=== PATIENT | female | born 1960 | race Caucasian/White ===

== ENCOUNTER → 2016-04-17 | Outpatient (CLI) | payer OTHER ==
[~2016-04-17] MED LIST: ATOR1TAB18 PO; LEVO100T5 PO; LEVO50TA4 PO; LEVO75TA3 PO; ROBA500T PO
[2016-04-17 13:35] LABS: ALKALINE PHOSPHATASE 90 U/L (45-117); ALT (GPT) 38 U/L (10-53); ANION GAP 7 MEQ/L (5-15); AST (GOT) 36 U/L (15-37); BICARBONATE 33.3 MEQ/L (21.0-32.0); BLOOD UREA NITROGEN 14 MG/DL (7-18); CHLORIDE 99 MEQ/L (98-107); GLOMERULAR FILTRATION RATE 34 ML/MIN (>89); GLUCOSE,FASTING 91 MG/DL (74-99); HDL CHOLESTEROL 46.7 MG/DL (40.0-60.0); LDL CHOLESTEROL 306 MG/DL (0-99); POTASSIUM 4.6 MEQ/L (3.5-5.1); SODIUM (NA) 139 MEQ/L (136-145); TOTAL BILIRUBIN ADULT 0.4 MG/DL (0.2-1.0)
== END ==
LOC: CLAB 10:21
PROVIDERS: ATTEND Nurse Practitioner Family
DX: I10 Essential (primary) hypertension (principal); E66.9 Obesity, unspecified; Z72.0 Tobacco use; Z88.9 Allergy status to unspecified drugs, medicaments and biological substances
CPT/HCPCS: 36415; 80053; 80061; 84443

== ENCOUNTER → 2016-05-08 | Outpatient (CLI) | payer OTHER | LOC: CLAB 11:20 | PROVIDERS: ATTEND Nurse Practitioner Family | DX: E03.9 Hypothyroidism, unspecified (principal) | CPT/HCPCS: 36415; 84443 ==

== ENCOUNTER → 2016-06-14 | Outpatient (CLI) | payer OTHER ==
[~2016-06-14] MED LIST changes: -LEVO50TA4 PO
== END ==
LOC: CLAB 09:52
PROVIDERS: ATTEND Nurse Practitioner Family
DX: E03.9 Hypothyroidism, unspecified (principal)
CPT/HCPCS: 36415; 84443

== ENCOUNTER → 2016-07-10 | Outpatient (CLI) | payer OTHER ==
[~2016-07-10] MED LIST changes: -LEVO75TA3 PO
--- NOTE | 2016-07-10 13:51 | RADRPT ---
EXAM DATE/TIME: 07/10/2016 11:04 [facility] COMPARISON: No previous studies available for comparison. INDICATIONS : Right ankle discomfort; trouble walking for 6 months. MEDICAL HISTORY : None. SURGICAL HISTORY : None. ENCOUNTER: Initial ACUITY: 4 - 6 months PAIN SCORE: 0/10 LOCATION: Right ankle. FINDINGS: A healing oblique fracture of the distal right fibula is present at the level of the distal tibiofibu lar joint. The hindfoot is grossly intact. CONCLUSION: Healing distal fibular fracture Bayron Rivero MD on July 10, 2016 at 13:48 Board Certified Radiologist. This report was verified electronically.
== END ==
LOC: HRAD 10:47
PROVIDERS: ATTEND Family Medicine
DX: M25.374 Other instability, right foot (principal)
CPT/HCPCS: 73610

== ENCOUNTER 2016-07-30 09:08 | Emergency (ER) | payer OTHER ==
[~2016-07-30] VITALS: Ht 154.9 cm; Wt 65.0 kg
[2016-07-30 09:14] VITALS: BP 126/58; PULSE 74; RESP 20; TEMP 97.7
[2016-07-30 09:40] VITALS: O2SAT 97
--- NOTE | 2016-07-30 09:43 | PD ---
HPI Chief Complaint: Syncope/Near-Syncope Time Seen by Provider: 09:26 Travel History International Travel<30 days: No Contact w/Intl Traveler<30days: No Traveled to known affect area: No History of Present Illness HPI This patient was seated on her patio smoking a cigarette when she according to her had a syncopal episode. He says that she slumped over in her chair and he called 911. She did not fall out of the chair. There is no injury. He woke up spontaneously. No alleviating factors. At this time she feels "drained " but otherwise no specific complaints. She did not have any headache or chest pain or palpitations. Symptoms severity was moderate. Duration several minutes PFSH Past Medical History High Cholesterol: Yes Hypertension: Yes Thyroid Disease: Yes Tetanus Vaccination: Unknown Influenza Vaccination: No ?: Not Dilation and Curettage (D&C): Yes Past Surgical History Section: Yes Tonsillectomy: Yes Social History Alcohol Use: No (quit for 10 yrs) Tobacco Use: Yes (1/2 PACK PER DAY) Substance Use: No Allergies-Medications (Allergen,Severity, Reaction): Coded Allergies: No Known Allergies (Verified , 06/28/16) Reported Meds & Prescriptions Reported Meds & Active Scripts Active Atorvastatin (Atorvastatin Calcium) 80 Mg Tab 80 Mg PO HS Levothyroxine (Levothyroxine Sodium) 100 Mcg Tab 100 Mcg PO DAILY Robaxin (Methocarbamol) 500 Mg Tab 500 Mg PO TID Review of Systems General / Constitutional: No: Fever Eyes: No: Visual changes HENT: No: Headaches Cardiovascular: Positive: Syncope, No: Chest Pain or Discomfort Respiratory: No: Shortness of Breath Gastrointestinal: No: Abdominal Pain Genitourinary: No: Dysuria Musculoskeletal: No: Pain Skin: No Rash Neurologic: Positive: Weakness, Syncope, Sensory Disturbance Psychiatric: No: Depression Endocrine: No: Polydipsia Hematologic/Lymphatic: No: Easy Bruising Physical Exam Narrative GENERAL: Well-nourished, well-developed patient in no apparent distress. SKIN: Focused skin assessment reveals no rash and nodules. Skin is Warm and dry. HEAD: Atraumatic. Normocephalic. EYES: Pupils equal and round. No scleral icterus. No injection or drainage. ENT: No nasal bleeding or discharge. Mucous membranes pink and moist. NECK: Trachea midline. No JVD. CARDIOVASCULAR: Regular rate and rhythm. No murmur appreciated. RESPIRATORY: No accessory muscle use. Clear to auscultation. Breath sounds equal bilaterally. GASTROINTESTINAL: Abdomen soft, non-tender, nondistended. Hepatic and splenic margins not palpable. MUSCULOSKELETAL: No obvious deformities. No clubbing. No cyanosis. No edema. NEUROLOGICAL: Awake and alert. No obvious cranial nerve deficits. Motor exam reveals some weakness of the right leg. Weak plantar flexion and dorsiflexion on the right leg. Sensation subjectively diminished to sharp and light touch in the right leg as well. Normal speech. PSYCHIATRIC: Appropriate mood and affect; insight and judgment normal. Data Data Last Documented VS Vital Signs Date Time Temp Pulse Resp B/P Pulse Ox O2 Delivery O2 Flow Rate FiO2 07/30/16 11:03 Room Air 07/30/16 09:40 97 07/30/16 09:14 97.7 74 20 126/58 Orders Electrocardiogram (07/30/16 09:36) Prothrombin Time / Inr (Pt) (07/30/16 09:36) Act Partial Throm Time (Ptt) (07/30/16 09:36) Complete Blood Count With Diff (07/30/16 09:36) Basic Metabolic Panel (Bmp) (07/30/16 09:36) Ct Brain W/O Iv Contrast(Rout) (07/30/16 09:36) Ecg Monitoring (07/30/16 09:36) Iv Access Insert/Monitor (07/30/16 09:36) Oximetry (07/30/16 09:36) Sodium Chloride 0.9% Flush (Ns Flush) (07/30/16 09:45) Labs Laboratory Tests Test 07/30/16 09:43 White Blood Count 13.6 TH/MM3 Red Blood Count 4.56 MIL/MM3 Hemoglobin 13.0 GM/DL Hematocrit 40.3 % Mean Corpuscular Volume 88.3 FL Mean Corpuscular Hemoglobin 28.4 PG Mean Corpuscular Hemoglobin 32.2 % Concent Red Cell Distribution Width 15.8 % Platelet Count 400 TH/MM3 Mean Platelet Volume 7.4 FL Neutrophils (%) (Auto) 60.2 % Lymphocytes (%) (Auto) 29.3 % Monocytes (%) (Auto) 7.4 % Eosinophils (%) (Auto) 2.4 % Basophils (%) (Auto) 0.7 % Neutrophils # (Auto) 8.2 TH/MM3 Lymphocytes # (Auto) 4.0 TH/MM3 Monocytes # (Auto) 1.0 TH/MM3 Eosinophils # (Auto) 0.3 TH/MM3 Basophils # (Auto) 0.1 TH/MM3 CBC Comment DIFF FINAL Differential Comment Prothrombin Time 11.1 SEC Prothromb Time International 1.0 RATIO Ratio Activated Partial 26.6 SEC Thromboplast Time Sodium Level 139 MEQ/L Potassium Level 4.8 MEQ/L Chloride Level 104 MEQ/L Carbon Dioxide Level 27.0 MEQ/L Anion Gap 8 MEQ/L Blood Urea Nitrogen 12 MG/DL Creatinine 0.86 MG/DL Estimat Glomerular Filtration 68 ML/MIN Rate Random Glucose 102 MG/DL Calcium Level 9.9 MG/DL [facility] Medical Decision Making Medical Screen Exam Complete: Yes Emergency Medical Condition: Yes Medical Record Reviewed: Yes Differential Diagnosis Cardiac arrhythmia, vasovagal episode, CVA Narrative Course I have reviewed the patient's electronic medical record. Patient was here 3 weeks ago with ankle injury This patient presented with a syncopal episode. Extended cardiac monitoring reveals sinus rhythm without ectopy I reviewed her EKG which is normal IV placed CBC is normal Metabolic profile is normal Coagulation studies are normal Brain CT shows ischemic white matter change more prominent in the left lacunar area suggesting possibility of old stroke there Neurologic exam I noticed that she has numbness and weakness of the right leg. That's been going on for about 3 months so not new or acute. She is seen her doctor since that occurred and says that "her doctor is working on it". She does not of a formal diagnosis. However putting together her CT and exam and history I suspect that she did have a small stroke 3 months ago. I don't see any acute indication to hospitalize her now for this. Her doctor is aware of the situation I have observed her for 3 hours here and she remains asymptomatic with sinus rhythm and normal EKG and normal vital signs She will follow-up with her family physician. If she has recurrent syncope or any neurologic change her will bring her back likely do hospitalization at that point. Diagnosis Primary Impression: Episode of syncope Qualified Code: R55 - Syncope, unspecified syncope type Additional Impression: Weakness of left leg Additional Instructions: The patient was advised to follow up with their physician and return if they worsen. Med/Other Pt SpecificInfo: Other Disposition: DISCHARGE HOME Condition: Stable Gwyn Dickens MD July 30, 2016 09:43
[2016-07-30] MEDS ORDERED: SODIUM CHLORIDE 0.9% FLUSH 10 ML FLUSH IVF PRN (09:45)
[2016-07-30 10:19] LABS: AUTOMATED NEUTROPHIL # 8.2 TH/MM3 (1.8-7.7); BASOPHIL # 0.1 TH/MM3 (0-0.2); BASOPHIL % 0.7 % (0.0-2.0); EOSINOPHIL # 0.3 TH/MM3 (0-0.4); EOSINOPHIL % 2.4 % (0.0-4.0); HEMATOCRIT 40.3 % (35.0-46.0); HEMO FLAGS DIFF FINAL; LYMPH % 29.3 % (9.0-44.0); MEAN CELL VOLUME 88.3 FL (80.0-100.0); MEAN CORPUSCULAR HEMOGLOBIN 28.4 PG (27.0-34.0); MEAN CORPUSCULAR HGB CONC 32.2 % (32.0-36.0); MONO % 7.4 % (0.0-8.0); NEUT % 60.2 % (16.0-70.0); PLATELET COUNT 400 TH/MM3 (150-450); RED BLOOD COUNT 4.56 MIL/MM3 (4.00-5.30); RED CELL DISTRIBUTION WIDTH 15.8 % (11.6-17.2); WHITE BLOOD COUNT 13.6 TH/MM3 (4.0-11.0)
--- NOTE | 2016-07-30 10:25 | RADRPT ---
EXAM DATE/TIME: 07/30/2016 10:11 [facility] COMPARISON: No previous studies available for comparison. INDICATIONS : History of syncopal episodes. RADIATION DOSE: 39.55 CTDIvol (mGy) MEDICAL HISTORY : Hypertension. SURGICAL HISTORY : Tonsillectomy. ENCOUNTER: Initial ACUITY: 1 day PAIN SCALE: 0/10 LOCATION: TECHNIQUE: Multiple contiguous axial images were obtained of the head. Using automated exposure control and adj ustment of the mA and/or kV according to patient size, radiation dose was kept as low as reasonably a chievable to obtain optimal diagnostic quality images. FINDINGS: CEREBRUM: There is mild generalized cerebral atrophy. Ventricles are normal in size given the degree of atrophy present. There is mild to moderate periventricular white matter low attenuation. More focal asymmetr ic areas of low-attenuation are present in the left centrum semiovale and left periventricular fronta l white matter. No evidence of midline shift, mass lesion, hemorrhage or acute infarction. No extra -axial fluid collections are seen. POSTERIOR FOSSA: The cerebellum and brainstem demonstrate no acute finding. The 4th ventricle is midline. The cerebe llopontine angle is unremarkable. EXTRACRANIAL: Visualized sinuses are clear. SKULL: The calvaria is intact. No evidence of skull fracture. CONCLUSION: 1. No acute intracranial abnormality is identified. 2. There is mild to moderate periventricular white matter low attenuation characteristic of chronic m icrovascular ischemia with asymmetric areas of low density in the left centrum semiovale and left fro ntal periventricular white matter likely representing old lacunes. Bayron Martines MD on July 30, 2016 at 10:21 Board Certified Radiologist. This report was verified electronically.
[2016-07-30 10:28] LABS: APTT (PATIENT) 26.6 SEC (24.3-30.1); PROTHROMBIN TIME - PATIENT 11.1 SEC (9.8-11.6)
[2016-07-30 10:55] LABS: POTASSIUM 4.8 MEQ/L (3.5-5.1)
--- NOTE | 2016-07-30 20:10 | EKG ---
Date Performed: 07/30/2016 Time Performed: 09:17:28 PTAGE: 56 years EKG: Sinus rhythm NORMAL ECG Compared to prior tracing no significant change DOCTOR: Te Malhotra Interpretating Date/Time 07/30/2016 20:09:38
== END 2016-07-30 12:33 | disposition home or self-care (01) ==
LOC: NEPC 09:08
DX: R55 Syncope and collapse (principal); R53.1 Weakness; E78.00 Pure hypercholesterolemia, unspecified; I10 Essential (primary) hypertension; F17.210 Nicotine dependence, cigarettes, uncomplicated
CPT/HCPCS: 70450; 80048; 85025; 85610; 85730; 93005; 99285

== ENCOUNTER → 2016-08-09 | Outpatient (CLI) | payer OTHER ==
[2016-08-09 12:38] LABS: HDL CHOLESTEROL 38.7 MG/DL (40.0-60.0)
== END ==
LOC: CLAB 11:39
PROVIDERS: ATTEND Nurse Practitioner Family
DX: E78.5 Hyperlipidemia, unspecified (principal); E03.9 Hypothyroidism, unspecified
CPT/HCPCS: 36415; 80061; 84443

== ENCOUNTER → 2016-08-14 | Outpatient (CLI) | payer OTHER ==
--- NOTE | 2016-08-14 10:59 | RADRPT ---
EXAM DATE/TIME: 08/14/2016 09:49 [facility] COMPARISON: No previous studies available for comparison. INDICATIONS : Syncope. MEDICAL HISTORY : Hypercholesterolemia. Hypothyroidism. Hypertension. Pancreatitis. Hyperlipidemia. SURGICAL HISTORY : Tonsillectomy. section. D&C. Right hip surgery. ENCOUNTER: Initial ACUITY: PAIN SCORE: 0/10 LOCATION: Bilateral neck PEAK SYSTOLIC VELOCITIES (cm/sec): ICA/CCA RATIO: Right: 1.3 Left: 6.0 ICA: Right: 106.5 Left: 382.7 CCA: Right: 80.1 Left: 63.6 ECA: Right: 88.7 Left: 143.7 VERTEBRAL: Right: 34.8 antegrade Left: 69.1 antegrade Elevated flow velocities and ICA/CCA ratios have been found to correlate with increased degrees of vessel stenosis, calculated as percentage of diameter relative to a normal segment of distal ICA/CCA FINDINGS: RIGHT CAROTID: There is mild plaquing at the bifurcation. Waveforms within normal limits. LEFT CAROTID: There is atherosclerotic plaquing with significantly elevated peak systolic velocity ratio. VERTEBRAL ARTERIES: Antegrade flow is seen in both vertebral arteries. MISCELLANEOUS: None. CONCLUSION: 1. The examination would suggest very high grade stenosis in the origin of the left internal carotid. CT angiography is warranted for definitive assessment. Edenilson Cortes MD on August 14, 2016 at 10:55 Board Certified Radiologist. This report was verified electronically.
--- NOTE | 2016-08-14 15:13 | ECHRPT ---
Indication: Syncope and collapse CONCLUSIONS The left ventricular systolic function is normal with an estimated ejection fraction in the range of 60-65%. Mild left ventricular hypertrophy. BP: / HR: Rhythm: Sinus MEASUREMENTS (Male / Female) Normal Values Technical Quality: Technically difficult study 2D ECHO LV Diastolic Diameter PLAX 4.2 cm 4.2 - 5.9 / 3.9 - 5.3 cm LV Systolic Diameter PLAX 3.0 cm IVS Diastolic Thickness 1.1 cm 0.6 - 1.0 / 0.6 - 0.9 cm LVPW Diastolic Thickness 0.6 cm 0.6 - 1.0 / 0.6 - 0.9 cm LV Relative Wall Thickness 0.4 RV Internal Dim ED PLAX 1.9 cm LA Systolic Diameter LX 3.2 cm 3.0 - 4.0 / 2.7 - 3.8 cm DOPPLER Mitral E Point Velocity 69.1 cm/s Mitral A Point Velocity 74.0 cm/s Mitral E to A Ratio 0.9 TR Peak Velocity 262.0 cm/s TR Peak Gradient 27.5 mmHg FINDINGS Left Ventricle The left ventricular systolic function is normal with an estimated ejection fraction in the range of 60-65%. Mild left ventricular hypertrophy. Right Ventricle Normal right ventricular size and systolic function. Left Atrium The left atrial size is normal. Right Atrium The right atrial size is normal. Atrial Septum Normal atrial septal thickness without atrial level shunting by limited color doppler interrogation. Aorta The aortic root and proximal ascending aorta are normal in size on limited imaging. Mitral Valve Structurally normal mitral valve. No mitral valve stenosis or regurgitation. Aortic Valve Trileaflet aortic valve. No aortic valve stenosis or regurgitation. Tricuspid Valve Structurally normal tricuspid valve. No tricuspid valve stenosis or regurgitation. Vessels The inferior vena cava is normal in size. Pericardium No pericardial effusion. Te Malhotra MD, FACC Edited by: Advanced Circulatory Senior Actuarial Analyst (Electronically Signed) Final Date:14 August 2016 15:12 Amended: 15 August 2016 13:36 LANDRY
--- NOTE | 2016-08-15 14:09 | HM ---
Date Performed: 08/14/2016 Time Performed: 10:37:00 HOOKUP DATE: 08/14/16 10:37:00 AM Wed ANALYSIS START TIME: 08/14/2016 10:42:00 AM ANALYSIS END TIME: 08/15/2016 8:44:20 AM PATIENT AGE: 56 PATIENT HEIGHT PATIENT WEIGHT DRUG LIST PATIENT DIAGNOSIS: SYNCOPE TEST NARRATIVE: The patient's average heart rate was 94 BPM. Heart rates greater than 120 B PM were noted 6% of the time. No episodes of bradycardia were noted. No pauses exceeding 2.0 sec onds were noted. 5 ventricular ectopics, which represented < 1% of the total beat count, were not ed. The highest ventricular ectopic frequency occurred from 10:00 AM to 11:00 AM Wed. During this t zachary 2 VE(s) occurred. Ventricular ectopics were observed as 3 isolated beat(s) and as 1 couplet(s). No runs were noted. 1 supraventricular ectopics, which represented < 1% of the total beat count, were noted. The highest supraventricular ectopic frequency occurred from 06:00 AM to 07:00 AM [place]. During this time 1 SVE(s) occurred. In channel 1, a single episode of ST depression (defined as -1.0 mm or more) occurred at 08:33:28 AM [place] with a maximum depression of -1.6 mm. No episodes of ST depression (defined as -1.0 mm or more) were noted in channel 2. No episodes of ST depression (defi sandra as -1.0 mm or more) were noted in channel 3. TEST INTERPRETATION: The patient was monitored for 22 hours and 2 minutes. There were 3 PVCs an d one ventricular couplet. Conclusions: Ectopy as described above. No significant arrhythmias dete cted. Signed by : Devan fountain
== END ==
LOC: HECH 07:56
PROVIDERS: ATTEND Family Medicine
DX: R55 Syncope and collapse (principal)
CPT/HCPCS: 93225; 93226; 93306; 93880

== ENCOUNTER → 2016-08-16 | Outpatient (CLI) | payer OTHER ==
[2016-08-16 11:47] LABS: ANION GAP 9 MEQ/L (5-15); AST (GOT) 17 U/L (15-37); BICARBONATE 26.7 MEQ/L (21.0-32.0); BLOOD UREA NITROGEN 8 MG/DL (7-18); CHLORIDE 106 MEQ/L (98-107); GLOMERULAR FILTRATION RATE 63 ML/MIN (>89); GLUCOSE,FASTING 98 MG/DL (74-99); POTASSIUM 4.2 MEQ/L (3.5-5.1); SODIUM (NA) 142 MEQ/L (136-145)
[2016-08-16 11:49] LABS: ALT (GPT) 23 U/L (10-53)
[2016-08-16 11:50] LABS: ALKALINE PHOSPHATASE 131 U/L (45-117); TOTAL BILIRUBIN ADULT 0.4 MG/DL (0.2-1.0)
== END ==
LOC: CLAB 10:54
PROVIDERS: ATTEND Nurse Practitioner Family
DX: N18.9 Chronic kidney disease, unspecified (principal); I65.29 Occlusion and stenosis of unspecified carotid artery
CPT/HCPCS: 36415; 80053; 84100

== ENCOUNTER → 2016-09-16 | Outpatient (CLI) | payer OTHER ==
[~2016-09-16] MED LIST changes: +ASPI325T PO; +IOHEXOL 350 MG/ML 10 ML VIAL (for RAD DIAG) IV ONE
--- NOTE | 2016-09-16 17:01 | RADRPT ---
EXAM DATE/TIME: 09/16/2016 15:13 [facility] COMPARISON: US CAROTID ARTERIES, August 14, 2016, 9:49. INDICATIONS : Carotid stenosis, abnormal ultrasound IV CONTRAST: 50 cc Omnipaque 350 (iohexol) IV RADIATION DOSE: 15.6 CTDIvol (mGy) MEDICAL HISTORY : Hypertension. Pancreatitis. SURGICAL HISTORY : Tonsillectomy. section. ENCOUNTER: Initial ACUITY: 1 day PAIN SCALE: 0/10 LOCATION: neck Elevated flow velocities and ICA/CCA ratios have been found to correlate with increased degrees of vessel stenosis, calculated as percentage of diameter relative to a normal segment of distal ICA/CCA. TECHNIQUE: Volumetric scanning was performed using a multirow detector CT scanner. The data was post processed with a variety of visualization algorithms including full-volume maximum intensity projection, multip lanar sliding thin-slab reformation, curved-planar reformation, and surface-rendering techniques. Us ing automated exposure control and adjustment of the mA and/or kV according to patient size, radiatio n dose was kept as low as reasonably achievable to obtain optimal diagnostic quality images. DICOM f ormat image data is available electronically for review and comparison. FINDINGS: AORTIC ARCH: There is a three-vessel origin of the great vessels from the aorta. No evidence of ostial narrowing. RIGHT CAROTID: Slight eccentric calcific plaquing encompassing the bulb and ICA origin without significant associate d stenotic narrowing. The internal carotid artery is then normal in caliber and appearance, pursuing a retropharyngeal course in the mid neck. The vessel is widely patent to the skull base LEFT CAROTID: Severe irregular weblike stenosis involving the proximal left ICA with about 70-80% focal stenotic na rrowing just above the left ICA origin. Beyond this proximal disease, the vessel regains a normal salena iber and is widely patent to the skull base. VERTEBRALS: The vertebral arteries have a symmetric diameter. No stenotic lesions are seen. CONCLUSION: 70-80% left carotid bifurcation stenosis. Mild disease without significant stenotic narrowing on the right. Bayron Rivero MD on September 16, 2016 at 16:55 Board Certified Radiologist. This report was verified electronically.
== END ==
LOC: HRAD 12:10
PROVIDERS: ATTEND Family Medicine
DX: I65.29 Occlusion and stenosis of unspecified carotid artery (principal)
CPT/HCPCS: 70498; Q9967

== ENCOUNTER 2016-11-12 05:54 | Inpatient (IN) | payer OTHER ==
[~2016-11-12] VITALS: Ht 157.5 cm; Wt 66.8 kg
[2016-11-12] VITALS (7 sets, daily range): BP systolic 111–148; BP diastolic 61–73; PULSE 68–84; RESP 16–18; TEMP 97.5–98.7; O2SAT 94–99
[~2016-11-12 05:54] MED LIST changes: -IOHEXOL 350 MG/ML 10 ML VIAL (for RAD DIAG) IV ONE; -ROBA500T PO
[2016-11-12] MEDS ORDERED: INSULIN HUMAN REGULAR 1,000 UNITS/10 ML VIAL SQ PRN (06:30)
[2016-11-12] MEDS ORDERED: POVIDONE IODINE 5% (ANTISEPSIS KIT) 4 APPLICATIONS EACH NARE PRN (06:30)
[2016-11-12] MEDS ORDERED: SODIUM CHLORID 0.9% 500 ML IV PRN (06:30)
[2016-11-12] MEDS ORDERED: CHLORHEXIDINE GLUCONATE 2 % 1 PACK (2 CLOTHS) TOPICAL PRN (06:30)
[2016-11-12] MEDS ORDERED: LACTATED RINGER'S 1000 ML IV PRN (06:30)
[2016-11-12] MEDS ORDERED: METOPROLOL TARTRATE 25 MG TAB PO PRN (06:30)
--- NOTE | 2016-11-12 06:44 | RADRPT ---
EXAM DATE/TIME: 11/12/2016 06:20 [facility] COMPARISON: CHEST SINGLE AP, October 23, 2015, 16:59. INDICATIONS : Evaluate for pneumonia,pneumothorax, and communicable disease. MEDICAL HISTORY : None. SURGICAL HISTORY : None. ENCOUNTER: Initial ACUITY: 1 day PAIN SCORE: 0/10 LOCATION: Bilateral chest FINDINGS: Minimal linear opacities in the left lower lung zone. No new focal pleural or parenchymal opacities. Cardiomediastinal contours are within normal limits. Remainder of the exam is unchanged. CONCLUSION: 1. Minimal left lower lobe atelectasis. Samir Greenwood MD on November 12, 2016 at 6:42 Board Certified Radiologist. This report was verified electronically.
[2016-11-12 07:05] LABS: AUTOMATED NEUTROPHIL # 6.6 TH/MM3 (1.8-7.7); BASOPHIL # 0.2 TH/MM3 (0-0.2); BASOPHIL % 1.3 % (0.0-2.0); EOSINOPHIL # 0.3 TH/MM3 (0-0.4); EOSINOPHIL % 2.5 % (0.0-4.0); HEMATOCRIT 41.3 % (35.0-46.0); HEMO FLAGS DIFF FINAL; LYMPH % 35.7 % (9.0-44.0); LYMPHOCYTE # 4.4 TH/MM3 (1.0-4.8); MEAN CELL VOLUME 86.3 FL (80.0-100.0); MEAN CORPUSCULAR HEMOGLOBIN 29.3 PG (27.0-34.0); MEAN CORPUSCULAR HGB CONC 33.9 % (32.0-36.0); MONO % 7.5 % (0.0-8.0); PLATELET COUNT 366 TH/MM3 (150-450); RED BLOOD COUNT 4.79 MIL/MM3 (4.00-5.30); WHITE BLOOD COUNT 12.4 TH/MM3 (4.0-11.0)
[2016-11-12 07:18] LABS: BLOOD, URINE SMALL (NEG); COMMENT (UR) CULT NOT INDICATED; CULTURE IF INDICATED CULT NOT INDICATED; GLUCOSE,URINE NEG (NEG); KETONE, URINE NEG (NEG); NITRITE,URINE NEG (NEG); RENAL EPITHELIAL CELLS <1 /hpf; SQUAMOUS EPITHELIAL CELL URINE <1 /hpf (0-5); URINE COLOR LIGHT-YELLOW (YELLW/STRAW)
[2016-11-12 07:20] LABS: PROTHROMBIN TIME - PATIENT 10.5 SEC (9.8-11.6)
[2016-11-12] MEDS ORDERED: HEPARIN SODIUM - IV 10,000 UNITS/10 ML VIAL ONE (07:29)
[2016-11-12] MEDS ORDERED: THROMBIN (TOPICAL) 20,000 UNIT SPRAY KIT ONE (07:29)
[2016-11-12] MEDS ORDERED: PROTAMINE SULFATE 50 MG/5 ML VIAL ONE (07:30)
[2016-11-12] MEDS ORDERED: MIDAZOLAM HCL 2 MG/2 ML VIAL ONE (07:35)
[2016-11-12] MEDS ORDERED: FAMOTIDINE 20 MG/2 ML VIAL ONE (07:35)
[2016-11-12] MEDS ORDERED: DEXAMETHASONE SOD PHOS 4 MG/ML VIAL ONE (07:36)
--- NOTE | 2016-11-12 07:36 | PD.VS.PN ---
Pre-operative Note Pre-operative diagnosis: high grade L carotid stenosis Planned procedure: L CEA Interval History: congested over the week-end but no F/C. No stroke, TIA, AF. Labs: Laboratory Results Test 11/12/16 06:28 11/12/16 06:30 Hematocrit 41.3 % (35.0-46.0) Hemoglobin 14.0 GM/DL (11.6-15.3) Mean Corpuscular Hemoglobin 29.3 PG (27.0-34.0) Mean Corpuscular Hemoglobin Concent 33.9 % (32.0-36.0) Mean Corpuscular Volume 86.3 FL (80.0-100.0) Mean Platelet Volume 7.3 FL (7.0-11.0) Platelet Count 366 TH/MM3 (150-450) Red Blood Count 4.79 MIL/MM3 (4.00-5.30) Red Cell Distribution Width 17.0 % (11.6-17.2) White Blood Count 12.4 TH/MM3 (4.0-11.0) Prothromb Time International Ratio 1.0 RATIO Blood: T&S Imaging: Last Impressions Chest X-Ray 11/12/16620 Signed Impressions: Service Date/Time: Saturday, November 12, 2016 06:20 - CONCLUSION: 1. Minimal left lower lobe atelectasis. Samir Greenwood MD Orders: NPO Ancef 2g IV OCTOR Post-operative destination: [facility]ICU Operative site marked: Yes Consent: Informed consent has been obtained from Franchesca Dupont. I have explained the procedure in detail and discussed the risks, benefits, and potential complications. All questions have been answered. Patient contact information: [phone] Matthew Carmona MD Nov 12, 2016 07:36
[2016-11-12 07:38] LABS: BICARBONATE 26.4 MEQ/L (21.0-32.0)
[2016-11-12] MEDS ORDERED: ACETAMINOPHEN 1000 MG/100 ML 100 ML IV ONE (07:41)
[2016-11-12] MEDS ORDERED: ceFAZolin 2 GM PREMIX 50 ML ONE (07:58)
[2016-11-12] MEDS ORDERED: BUPIVACAINE HCL PF 0.5% 30 ML VIAL ONE (08:40)
--- NOTE | 2016-11-12 10:19 | HHI.PR ---
Immediate Post Op Note Procedure Date: Nov 12, 2016 Pre Op Diagnosis: asymptomatic L carotid stenosis Post Op Diagnosis: asymptomatic L carotid stenosis Surgeon: Matthew Carmona Staff Consultant(s): Sarabjit De Procedure: L CEA with neuro monitoring Findings: high grade soft plaque at bifurcation Additional Information: Awoke neuro intact Complications: none apparent Specimen(s) removed: plaque, not for pathology Estimated blood loss: 50mL Anesthesia: General Drains: None Fluids: 2000mL x'oid; 300mL UOP IVF Patient to: Other ([facility]ICU) Patient Condition: Good Implant/Devices: SEE IMPLANT LOG (if applicable) Date/Time of Procedure: SEE SURGICAL CARE RECORD Matthew Carmona MD Nov 12, 2016 10:19
[2016-11-12] MEDS ORDERED: HYDROmorphone HCL 2 MG TAB PO PRN (10:30)
--- NOTE | 2016-11-12 11:19 | MP ---
cc: JELANI CARMONA MD DATE OF SURGERY: 11/12/2016 PREOPERATIVE DIAGNOSIS: High-grade asymptomatic left carotid stenosis. POSTOPERATIVE DIAGNOSIS High grade asymptomatic left carotid stenosis. PROCEDURE Left carotid endarterectomy SURGEON Jelani Carmona MD. BUYER SURGEON Sarabjit De ANESTHESIA General INDICATIONS Mrs. Dupont is a 56 year-old lady with a high-grade asymptomatic left carotid stenosis. She had some neurological event about six months ago but this has not recurred. She was offered carotid endarterectomy. PROCEDURE: Informed consent was obtained, the patient was taken to the operating room and placed supine on the operating room table. Appropriate time-out was taken to the patient and planned procedure. Administration of 2 grams Ancef initiated prior to skin incision will be discontinued after single preoperative dose. Everyone in the room agreed with time-out and we proceeded. The left neck was prepped and draped. An incision was made along the anterior border of sternocleidomastoid carried down to the subcutaneous tissue with electrocautery. The sternocleidomastoid was then mobilized posteriorly the facial vein was ligated between 3-0 silk sutures and a carotid artery was identified. Both branches, ischemic branch of the external carotid artery through the superior thyroid artery were encircled with vessel loop. The common carotid artery and distal internal carotid artery encircled vessel loop. The patient systemically heparinized and once the AC was confirmed to be greater than 250 distal and proximal control the carotid were obtained profunda clamps and a longitudinal arteriotomy was made below blade and with Rafa scissors artery was endarterectomized without difficulty. An a nice endpoint was obtained in the distal ICA. The bovine pericardial patch was brought up onto the field and sewn on using running 5-0 Prolene suture. The completion it was flushed and hemostatic with several repair sutures. The clamps released. A nice Doppler signal in the ICA and ECA. The heparin reversed with protamine. The wound was made hemostatic and closed with 2-0 Polysorb, 3-0 Polysorb, 4-0 Monocryl. At the and the case the patient was awoken from anesthesia was found be Neurologically intact and taken to the cardiovascular ICU in stable condition. The no complications. I was present and scrubbed for the entire procedure. MD Chayito Trevino /10:58 AM /11:10 AM
[2016-11-12] MEDS ORDERED: D5-1/2 NS + KCL 20 MEQ INJ 1,000 ML IV SCH (11:30)
[2016-11-12] MEDS ORDERED: PHENYLEPH/NS 1000 MCG/10 ML SYR IV ONE (12:00)
[2016-11-12] MEDS ORDERED: NEOSTIGMINE 3 MG/3 ML SYR IV ONE (12:00)
[2016-11-12] MEDS ORDERED: ONDANSETRON HCL 4 MG/2 ML VIAL IV PUSH ONE (12:00)
[2016-11-12] MEDS ORDERED: PROPOFOL 200 MG/20 ML AMP IV ONE (12:00)
[2016-11-12] MEDS ORDERED: ePHEDrine/NS 25 MG/5 ML SYR IV ONE (12:00)
--- NOTE | 2016-11-12 12:53 | PD.CONS ---
[facility] Service Critical Care Medicine Consult Requested By Dr. Carmona Reason for Consult s/p Left carotid endarterectomy for high-grade left carotid stenosis Primary Care Physician No Primary Care Physician History of Present Illness Patient is a 53-year-old white female with past medical history significant for dyslipidemia, hypertension, hypothyroidism, high-grade asymptomatic left carotid stenosis. Patient underwent left carotid endarterectomy by Dr. Carmona today under general anesthesia. Estimated blood loss was 50mL, received 2 L of crystalloids, Urine output was 300 mL. Postprocedure patient was extubated. I evaluated the patient to CVICU. Patient has no focal neurological deficits. Blood pressure is adequately controlled Review of Systems ROS Limitations: Other (as per [facility]) Past Family Social History Allergies: Coded Allergies: No Known Allergies (Verified , 11/12/16) Past Medical History Hypertension Dyslipidemia Hypothyroidism Tobacco abuse Past Surgical History Tonsillectomy Hysterectomy Reported Medications Aspirin 325 mg daily Lipitor 80 mg daily at bedtime Synthroid 100 g daily Active Ordered Medications Reviewed Family History No history of peripheral arterial disease/carotid disease per patient Social History Smokes half pack of cigarettes per day. Quit alcohol 10 years ago Physical Exam Vital Signs Vital Signs Date Time Temp Pulse Resp B/P (MAP) Pulse Ox O2 Delivery O2 Flow Rate FiO2 11/12/16 12:00 80 11/12/16 12:00 99 Nasal Cannula 4.00 11/12/16 12:00 97.5 80 16 128/73 (91) 99 148/66 (93) 11/12/16 11:56 98 Nasal Cannula 4.00 Physical Exam GENERAL: Well-nourished, well-developed patient in no apparent distress. SKIN: Skin is Warm and dry. HEAD: Atraumatic. Normocephalic. EYES: Pupils equal and round. No scleral icterus. No injection or drainage. ENT: No nasal bleeding or discharge. Mucous membranes pink and moist. NECK: Trachea midline. Status post left carotid endarterectomy, incision C/D/I , with mild swelling CARDIOVASCULAR: Regular rate and rhythm. No murmur appreciated. Blood pressure 140/90 RESPIRATORY: No accessory muscle use. Clear to auscultation. Breath sounds equal bilaterally. GASTROINTESTINAL: Abdomen soft, non-tender, nondistended. Hepatic and splenic margins not palpable. MUSCULOSKELETAL: No obvious deformities. No clubbing. No cyanosis. No edema. NEUROLOGICAL: Awake and alert. No obvious cranial nerve deficits. No focal neurological deficits Laboratory Laboratory Tests Test 11/12/16 06:28 11/12/16 06:30 White Blood Count 12.4 Red Blood Count 4.79 Hemoglobin 14.0 Hematocrit 41.3 Mean Corpuscular Volume 86.3 Mean Corpuscular Hemoglobin 29.3 Mean Corpuscular Hemoglobin Concent 33.9 Red Cell Distribution Width 17.0 Platelet Count 366 Mean Platelet Volume 7.3 Neutrophils (%) (Auto) 53.0 Lymphocytes (%) (Auto) 35.7 Monocytes (%) (Auto) 7.5 Eosinophils (%) (Auto) 2.5 Basophils (%) (Auto) 1.3 Neutrophils # (Auto) 6.6 Lymphocytes # (Auto) 4.4 Monocytes # (Auto) 0.9 Eosinophils # (Auto) 0.3 Basophils # (Auto) 0.2 CBC Comment DIFF FINAL Differential Comment Prothrombin Time 10.5 Prothromb Time International Ratio 1.0 Urine Color LIGHT-YELLOW Urine Turbidity CLEAR Urine pH 6.0 Urine Specific [place] 1.006 Urine Protein NEG Urine Glucose (UA) NEG Urine Ketones NEG Urine Occult Blood SMALL Urine Nitrite NEG Urine Bilirubin NEG Urine Urobilinogen LESS THAN 2.0 Urine Leukocyte Esterase SMALL Urine RBC 4 Urine WBC 2 Urine Squamous Epithelial Cells <1 Urine Renal Epithelial Cells <1 Microscopic Urinalysis Comment CULT NOT INDICATED Blood Urea Nitrogen 9 Creatinine 0.87 Random Glucose 103 Calcium Level 9.2 Sodium Level 142 Potassium Level 4.0 Chloride Level 108 Carbon Dioxide Level 26.4 Anion Gap 8 Estimat Glomerular Filtration Rate 67 Result Diagram: 11/12/16 0628 11/12/16 0630 Imaging Chest x-ray shows no acute disease Assessment and Plan Assessment and Plan ASSESSMENT Left carotid endarterectomy for high-grade left carotid stenosis Hypertension Dyslipidemia Hypothyroidism Tobacco abuse PLAN NEURO: - As needed Dilaudid, Ofirmev and oxycodone for pain - Resume aspirin 325 mg daily from tomorrow 11/13/16 - Neurochecks per ICU protocol RESP: - Nasal cannula oxygen - Counseled about quitting smoking CV: - Post carotid endarterectomy management per Dr. Carmona - Continue Lipitor - Restart aspirin 11/13/16 - IV fluid at 42 mL per hour GI: - Heart healthy diet when cleared by Dr. Carmona : - Monitor renal function closely. ID: - Monitor closely for infection HEME: - Monitor CBC, CMP, coags - Mild leukocytosis most likely reactive ENDO: - Continue Synthroid - Electrolyte replacement per protocol PROPH: - Bilateral lower extremity SCDs. Lovenox 30 mg subcutaneous daily from 11/13/[address] Carmona LINES: - Utilize peripheral IVs, central line if needed Level II new consult Code Status Full Rory Verma MD Nov 12, 2016 12:53
[2016-11-12] MEDS ORDERED: MAGNESIUM SULFATE INJ 4 GM in SODIUM CHLORIDE 0.9% INJ 92 ML IV PRN (13:00)
[2016-11-12] MEDS ORDERED: MAGNESIUM SULFATE INJ 2 GM in SODIUM CHLORIDE 0.9% INJ 96 ML IV PRN (13:00)
[2016-11-12] MEDS ORDERED: POTASSIUM CHLOR 20 MEQ PREMIX 100 ML IV PRN ×2 (13:00)
[2016-11-12] MEDS ORDERED: POTASSIUM CHLORIDE 25 MEQ EFFERVESCENT TAB PO PRN (13:00)
[2016-11-12] MEDS ORDERED: POTASSIUM PHOSPHATE INJ 30 MMOL in SODIUM CHLOR 0.9% 250 ML INJ 250 ML IV PRN (13:00)
[2016-11-12] MEDS ORDERED: SODIUM PHOSPHATE INJ 30 MMOL in SODIUM CHLOR 0.9% 250 ML INJ 240 ML IV PRN (13:00)
[2016-11-12] MEDS ORDERED: ACETAMINOPHEN 1000 MG/100 ML VIAL IV PRN (13:00)
[2016-11-12] MEDS ORDERED: POTASSIUM CHLOR 40 MEQ PREMIX 100 ML IV PRN ×2 (13:00)
[2016-11-12] MEDS ORDERED: POTASSIUM PHOSPHATE MONOBASIC 500 MG TAB PO PRN (13:00)
[2016-11-12] MEDS ORDERED: MAGNESIUM OXIDE 400 MG TAB PO PRN (13:00)
[2016-11-12] MEDS: FAMOTIDINE 20 MG TAB PO SCH (20:40)
[2016-11-12] MEDS ORDERED: ATORVASTATIN 40 MG TAB PO SCH (21:00)
[2016-11-13 03:09] VITALS: PULSE 73
[2016-11-13 03:18] VITALS: BP_SYST 132; BP_SYST 142; BP_DIAS 61; BP_DIAS 71; PULSE 70; RESP 18; TEMP 97.7; O2SAT 90
[2016-11-13 05:47] LABS: MEAN CELL VOLUME 87.1 FL (80.0-100.0); MEAN CORPUSCULAR HEMOGLOBIN 28.2 PG (27.0-34.0); MEAN CORPUSCULAR HGB CONC 32.4 % (32.0-36.0); PLATELET COUNT 351 TH/MM3 (150-450); RED BLOOD COUNT 4.59 MIL/MM3 (4.00-5.30); RED CELL DISTRIBUTION WIDTH 17.4 % (11.6-17.2); REVIEW FLAG FINAL; WHITE BLOOD COUNT 15.1 TH/MM3 (4.0-11.0)
[2016-11-13] MEDS ORDERED: LEVOTHYROXINE SODIUM 100 MCG TAB PO SCH (06:00)
[2016-11-13 06:08] LABS: BICARBONATE 29.5 MEQ/L (21.0-32.0)
--- NOTE | 2016-11-13 06:59 | HHI.CCPN ---
Subjective Remarks/Hospital Course Patient is a 53-year-old white female with past medical history significant for dyslipidemia, hypertension, hypothyroidism, high-grade asymptomatic left carotid stenosis. Patient underwent left carotid endarterectomy by Dr. Carmona today under general anesthesia. Estimated blood loss was 50mL, received 2 L of crystalloids, Urine output was 300 mL. Postprocedure patient was extubated. I evaluated the patient to CVICU. Patient has no focal neurological deficits. Blood pressure is adequately controlled 11/13: No acute events overnight. TSH elevated at 22. Synthroid increased to 125 mcg daily. BP control adequate. Leukocytosis is most likely stress related Objective Vital Signs Date Time Temp Pulse Resp B/P (MAP) Pulse Ox O2 Delivery O2 Flow Rate FiO2 11/13/16 03:18 97.7 70 18 132/71 (91) 90 142/61 (88) 11/13/16 03:18 Room Air 11/12/16 15:00 3.00 Intake and Output 11/13/16 11/13/16 11/14/16 08:00 16:00 00:00 Intake Total 899 ml Output Total 1910 ml Balance -1011 ml Result Diagram: 11/13/16 0512 11/13/16 0512 Imaging Chest x-ray shows no acute disease Objective Remarks GENERAL: Well-nourished, well-developed patient in no apparent distress. SKIN: Skin is Warm and dry. HEAD: Atraumatic. Normocephalic. EYES: Pupils equal and round. No scleral icterus. No injection or drainage. ENT: No nasal bleeding or discharge. Mucous membranes pink and moist. NECK: Trachea midline. Status post left carotid endarterectomy, incision C/D/I , with mild swelling surrounding incision CARDIOVASCULAR: Regular rate and rhythm. No murmur appreciated. Blood pressure 130/85 RESPIRATORY: No accessory muscle use. Clear to auscultation. Breath sounds equal bilaterally. GASTROINTESTINAL: Abdomen soft, non-tender, nondistended. Hepatic and splenic margins not palpable. MUSCULOSKELETAL: No obvious deformities. No clubbing. No cyanosis. No edema. NEUROLOGICAL: Awake and alert. No obvious cranial nerve deficits. No focal neurological deficits A/P Assessment and Plan ASSESSMENT s/p Left carotid endarterectomy for high-grade left carotid stenosis 11/12/16 Hypertension Dyslipidemia Hypothyroidism Tobacco abuse PLAN NEURO: - As needed Dilaudid, Ofirmev and oxycodone for pain - Resume aspirin 325 mg daily from today 11/13/16 - Neurochecks per ICU protocol RESP: - Nasal cannula oxygen - Counseled about quitting smoking CV: - Post carotid endarterectomy management per Dr. Carmona - Continue Lipitor - Restart aspirin 11/13/16 - IV fluid at 42 mL per hour GI: - Heart healthy diet when cleared by Dr. Carmona : - Monitor renal function closely. ID: - Monitor closely for infection HEME: - Monitor CBC, CMP, coags - Leukocytosis most likely reactive ENDO: - Increase Synthroid to 125 mcg daily - Electrolyte replacement per protocol PROPH: - Bilateral lower extremity SCDs. Lovenox 30 mg subcutaneous daily from 11/13/[address] Carmona LINES: - Utilize peripheral IVs, central line if needed Level II OK to transfer out of ICU from CCM standpoint. Will continue to follow while patient is in ICU Rory Verma MD Nov 13, 2016 06:59
[2016-11-13 07:00] VITALS: BP 159/70; PULSE 89; RESP 16; TEMP 97.9; O2SAT 94
--- NOTE | 2016-11-13 08:48 | PD.VS.PN ---
Subjective POD #: 1 Procedure(s): L CEA Subjective/Hospital Course Pt w/o complaints Pain controlled Pt denies headache Pt w/o any focal neurological deficits Reported a good night sleep Objective Vitals/I&O Date Time Temp Pulse Resp B/P (MAP) Pulse Ox O2 Delivery O2 Flow Rate FiO2 11/13/16 03:18 97.7 70 18 132/71 (91) 90 142/61 (88) 11/13/16 03:18 90 Room Air 11/13/16 03:09 73 11/12/16 23:58 71 11/12/16 23:05 97.9 76 16 125/71 (89) 96 121/61 (81) 11/12/16 23:05 96 Room Air 11/12/16 19:32 84 11/12/16 19:20 94 Room Air 11/12/16 19:20 98.7 68 18 111/63 (79) 94 129/66 (87) 11/12/16 18:04 88 11/12/16 15:00 73 11/12/16 15:00 97.9 75 16 115/67 (83) 99 138/66 (90) 11/12/16 15:00 99 Nasal Cannula 3.00 11/12/16 12:00 80 11/12/16 12:00 99 Nasal Cannula 4.00 11/12/16 12:00 97.5 80 16 128/73 (91) 99 148/66 (93) 11/12/16 11:56 98 Nasal Cannula 4.00 11/13/16 11/13/16 11/13/16 07:00 15:00 23:00 Intake Total 899 ml 81 ml Output Total 1910 ml Balance -1011 ml 81 ml Exam: GENERAL: A&OX3,NAD, GCS15 SKIN: Warm and dry/ Left sided neck incision intact w/ surgical glue w/ mild swelling/erythema present near incision line CARDIOVASCULAR: RRR, +S1,S2 RESPIRATORY: BS CTA/No accessory muscle use. GASTROINTESTINAL: S/NT Pt with equal special education paraprofessional strength CN 2-12 intact Pt w/o any focal neurological deficits Laboratory Laboratory Tests Test 11/13/16 05:12 White Blood Count 15.1 Red Blood Count 4.59 Hemoglobin 13.0 Hematocrit 40.0 Mean Corpuscular Volume 87.1 Mean Corpuscular Hemoglobin 28.2 Mean Corpuscular Hemoglobin Concent 32.4 Red Cell Distribution Width 17.4 Platelet Count 351 Mean Platelet Volume 6.8 Blood Urea Nitrogen 7 Creatinine 0.74 Random Glucose 96 Calcium Level 8.8 Sodium Level 143 Potassium Level 4.0 Chloride Level 109 Carbon Dioxide Level 29.5 Anion Gap 5 Estimat Glomerular Filtration Rate 81 Assessment and Plan Assessment: (1) Left-sided carotid artery disease (2) History of left-sided carotid endarterectomy Plan S/P L CEA w/o complications or focal neuro deficits Plan Pt to be d/c today TSH-22/will adjust Synthroid/ pt will f/u with PCP in 2W Will arrange F/U in our OPC Ashley MATHEW [facility] [phone] Discharge Planning Today Ashley Liz Nov 13, 2016 08:48
[2016-11-13] MEDS: FAMOTIDINE 20 MG TAB PO SCH (08:51)
[2016-11-13] MEDS ORDERED: LEVO100T5 PO (08:56)
[2016-11-13] MEDS ORDERED: PERC5TAB12 PO (08:56)
[2016-11-13] MEDS ORDERED: LEVO.125 PO (08:56)
[2016-11-13] MEDS ORDERED: ASPIRIN 325 MG TAB PO SCH (09:00)
[2016-11-13] MEDS ORDERED: ENOXAPARIN SODIUM 30 MG/0.3 ML SYRINGE SQ SCH (09:00)
--- NOTE | 2016-11-13 09:09 | PD.VS.DC ---
Discharge Summary Admission Date: Nov 12, 2016 at 05:54 Discharge Date: Nov 13, 2016 Admission Diagnosis: (1) Left-sided carotid artery disease Discharge Diagnosis: (1) Left-sided carotid artery disease ICD Codes: I77.9 - Disorder of arteries and arterioles, unspecified (2) History of left-sided carotid endarterectomy ICD Codes: Z98.890 - Other specified postprocedural states Brief History from admission Pt is a 56/F with a PMH of asymptomatic high grade L carotid stenosis Procedure(s): L CEA Significant Findings GENERAL: A&OX3,NAD, GCS15 SKIN: Warm and dry/ Left sided neck incision intact w/ surgical glue w/ mild swelling/erythema present near incision line CARDIOVASCULAR: RRR, +S1,S2 RESPIRATORY: BS CTA/No accessory muscle use. GASTROINTESTINAL: S/NT Pt with equal data warehouse consultant strength CN 2-12 intact Pt w/o any focal neurological deficits Laboratory Tests Test 11/12/16 06:28 11/12/16 06:30 11/13/16 05:12 White Blood Count 12.4 TH/MM3 (4.0-11.0) 15.1 TH/MM3 (4.0-11.0) Urine Occult Blood SMALL (NEG) Urine Leukocyte Esterase SMALL (NEG) Urine RBC 4 /hpf (0-3) Chloride Level 108 MEQ/L (98-107) 109 MEQ/L (98-107) Estimat Glomerular Filtration Rate 67 ML/MIN (>89) 81 ML/MIN (>89) Thyroid Stimulating Hormone 3rd Gen 22.000 uIU/ML (0.358-3.740) Red Cell Distribution Width 17.4 % (11.6-17.2) Mean Platelet Volume 6.8 FL (7.0-11.0) Hospital Course: Hx of Left sided high grade L carotid stenosis Pt s/p L CEA Pt w/o complications or neurological deficits TSH 22- increased Synthroid Pt to f/u with PCP in 2W for F/U Pt will F/U in 4W in our OPC Allergies Coded Allergies Type Severity Reaction Last Updated Verified No Known Allergies 11/12/16 Yes Recent Impressions Chest X-Ray 11/12/16 0621 Signed Impressions: Service Date/Time: Saturday, November 12, 2016 06:20 - CONCLUSION: 1. Minimal left lower lobe atelectasis. Samir Greenwood MD 11/11/16 11/11/16 11/12/16 11/12/16 11/13/16 11/13/16 05:59 17:59 05:59 17:59 05:59 17:59 Intake Total 2480 ml 244 ml 980 ml Output Total 1150 ml 1910 ml Balance 1330 ml 244 ml -930 ml Intake Oral 480 ml 360 ml IV Total 244 ml 620 ml Other 2000 ml Output Urine Total 1100 ml 1910 ml Estimated Blood Loss 50 ml # Bowel Movements 0 Laboratory Tests Test 11/12/16 06:28 11/12/16 06:30 11/13/16 05:12 White Blood Count 12.4 TH/MM3 15.1 TH/MM3 Red Blood Count 4.79 MIL/MM3 4.59 MIL/MM3 Hemoglobin 14.0 GM/DL 13.0 GM/DL Hematocrit 41.3 % 40.0 % Mean Corpuscular Volume 86.3 FL 87.1 FL Mean Corpuscular Hemoglobin 29.3 PG 28.2 PG Mean Corpuscular Hemoglobin Concent 33.9 % 32.4 % Red Cell Distribution Width 17.0 % 17.4 % Platelet Count 366 TH/MM3 351 TH/MM3 Mean Platelet Volume 7.3 FL 6.8 FL Neutrophils (%) (Auto) 53.0 % Lymphocytes (%) (Auto) 35.7 % Monocytes (%) (Auto) 7.5 % Eosinophils (%) (Auto) 2.5 % Basophils (%) (Auto) 1.3 % Neutrophils # (Auto) 6.6 TH/MM3 Lymphocytes # (Auto) 4.4 TH/MM3 Monocytes # (Auto) 0.9 TH/MM3 Eosinophils # (Auto) 0.3 TH/MM3 Basophils # (Auto) 0.2 TH/MM3 CBC Comment DIFF FINAL Differential Comment Prothrombin Time 10.5 SEC Prothromb Time International Ratio 1.0 RATIO Urine Color LIGHT-YELLOW Urine Turbidity CLEAR Urine pH 6.0 Urine Specific [place] 1.006 Urine Protein NEG mg/dL Urine Glucose (UA) NEG mg/dL Urine Ketones NEG mg/dL Urine Occult Blood SMALL Urine Nitrite NEG Urine Bilirubin NEG Urine Urobilinogen LESS THAN 2.0 MG/DL Urine Leukocyte Esterase SMALL Urine RBC 4 /hpf Urine WBC 2 /hpf Urine Squamous Epithelial Cells <1 /hpf Urine Renal Epithelial Cells <1 /hpf Microscopic Urinalysis Comment CULT NOT INDICATED Blood Urea Nitrogen 9 MG/DL 7 MG/DL Creatinine 0.87 MG/DL 0.74 MG/DL Random Glucose 103 MG/DL 96 MG/DL Calcium Level 9.2 MG/DL 8.8 MG/DL Sodium Level 142 MEQ/L 143 MEQ/L Potassium Level 4.0 MEQ/L 4.0 MEQ/L Chloride Level 108 MEQ/L 109 MEQ/L Carbon Dioxide Level 26.4 MEQ/L 29.5 MEQ/L Anion Gap 8 MEQ/L 5 MEQ/L Estimat Glomerular Filtration Rate 67 ML/MIN 81 ML/MIN Phosphorus Level 3.0 MG/DL Thyroid Stimulating Hormone 3rd Gen 22.000 uIU/ML Orders Procedure Category Date Status Time Lactated Ringer's MED 11/12/16 Complete 1000 Ml Inj (Lr 1000 M 06:30 Sodium Chlorid 0.9% MED 11/12/16 Complete 500 Ml Inj (Ns 500 M 06:30 Metoprolol Tartrate MED 11/12/16 In Process (Lopressor) 06:30 Povidone Iod 5% MED 11/12/16 In Process Antisepsis Kit 06:30 Chlorhexidine 2% MED 11/12/16 In Process Cloth (Chlorhexidine 06:30 Insulin Human Regular MED 11/12/16 In Process Inj (Novolin R Inj 06:30 Complete Blood Count LAB 11/12/16 Complete With Diff 06:19 Basic Metabolic Panel LAB 11/12/16 Complete (Bmp) 06:19 Prothrombin Time / LAB 11/12/16 Complete Inr (Pt) 06:19 Type And Screen BBK 11/12/16 Complete 06:19 Urinalysis - C+S If LAB 11/12/16 Complete Indicated 06:19 Specimen To Be GINNY 11/12/16 In Process Collected 06:19 Chest, Single Ap RADDIAG 11/12/16 Resulted 06:21 Heparin Inj (Heparin MED 11/12/16 Complete Inj) 07:29 Thrombin Top Baldwin MED 11/12/16 Complete (Thrombin Top Baldwin) 07:29 Protamine Sulfate Inj MED 11/12/16 Complete (Protamine Sulfate 07:30 Midazolam Inj (Versed MED 11/12/16 Complete Inj) 07:35 Famotidine Inj MED 11/12/16 Complete (Pepcid Inj) 07:35 Dexamethasone Inj MED 11/12/16 Complete (Decadron Inj) 07:36 Acetaminophen 1000 MED 11/12/16 Complete Mg/100 Ml (Ofirmev 10 07:41 Cefazolin 2 Gm Premix MED 11/12/16 Complete (Ancef 2 Gm Premix 07:58 Bupivacaine Pf 0.5% MED 11/12/16 Complete Inj (Marcaine Pf 0.5 08:40 Urinary Catheter GINNY 11/12/16 In Process Management 09:45 Am Admit Pre Op Care [facility] 11/12/16 Complete Admit To Inpatient ADMITTING 11/12/16 Transmitted Code Status CODE 11/12/16 Transmitted 10:19 Vital Signs (Adult) GINNY 11/12/16 Complete 10:19 Cutter And Presser / GINNY 11/12/16 In Process Telemetry 10:19 Activity Oob Ad Mdaiha GINNY 11/12/16 In Process 16:00 Activity Bed Rest GINNY 11/12/16 In Process 10:19 Diet Heart Healthy DIET 11/12/16 Transmitted Lunch Basic Metabolic Panel LAB 11/13/16 Complete (Bmp) 06:00 Cbc No Diff, Includes LAB 11/13/16 Complete Plts 06:00 Consult Ornamental Rail Installer CONS 11/12/16 Transmitted D5-1/2 Ns + Kcl 20 MED 11/12/16 In Process Meq Inj (D5-1/2 Ns + 11:30 Aspirin (Aspirin) MED 11/13/16 In Process 09:00 Famotidine (Pepcid) MED 11/12/16 In Process 21:00 Atorvastatin (Lipitor) MED 11/12/16 In Process 21:00 Oxycodone (Roxicodone) MED 11/12/16 In Process 10:30 Hydromorphone MED 11/12/16 In Process (Dilaudid) 10:30 Inpatient ADMITTING 11/12/16 Transmitted Certification Levothyroxine MED 11/13/16 Complete (Synthroid) 06:00 Fentanyl Inj MED 11/12/16 Complete (Fentanyl Inj) 10:43 (Hub Use Only)Inp Phy CONS 11/12/16 Transmitted Cons/Ref Enoxaparin Inj MED 11/13/16 In Process (Lovenox Inj) 09:00 ^ Medication Admin GINNY 11/12/16 In Process Instruction 12:[address]: Gabriela GINNY 11/12/16 In Process 12:49 Phosphorus (Po4) LAB 11/12/16 Complete 12:49 Potassium Chlor 40 MED 11/12/16 In Process Meq Premix (Kcl 40 Me 13:00 Potassium Chlor 20 MED 11/12/16 In Process Meq Premix (Kcl 20 Me 13:00 Potassium Chloride MED 11/12/16 In Process Eff (K-Lyte Cl Eff) 13:00 Potassium Chlor 40 MED 11/12/16 In Process Meq Premix (Kcl 40 Me 13:00 Potassium Chlor 20 MED 11/12/16 In Process Meq Premix (Kcl 20 Me 13:00 Magnesium Sulfate Inj MED 11/12/16 In Process (Magnesium Sulfate 13:00 Magnesium Oxide MED 11/12/16 In Process (Mag-Ox) 13:00 Magnesium Sulfate Inj MED 11/12/16 In Process (Magnesium Sulfate 13:00 Potassium Phosphate MED 11/12/16 In Process (K-Phos) 13:00 Sodium Phosphate Inj MED 11/12/16 In Process (Sodium Phosphate I 13:00 Potassium Phosphate MED 11/12/16 In Process Inj (Potassium Phosp 13:00 Acetaminophen 1000 MED 11/12/16 In Process Mg/100 Ml (Ofirmev 10 13:00 Thyroid Stimulating LAB 11/12/16 Complete Hormone 13:07 Instruction GINNY 11/13/16 In Process 03:41 Instruction GINNY 11/13/16 In Process 03:41 Free Thyroxine (T4) LAB 11/13/16 Logged 06:52 Levothyroxine MED 11/14/16 In Process (Synthroid) 06:00 ^ Discontinue GINNY 11/13/16 In Process Arterial Line 06:56 Complete Blood Count LAB 11/14/16 Verified With Diff 06:00 Attending Discharge DISCHARGE 11/13/16 Transmitted Order Vital Signs Date Time Temp Pulse Resp B/P (MAP) Pulse Ox O2 Delivery O2 Flow Rate FiO2 11/13/16 03:18 97.7 70 18 132/71 (91) 90 142/61 (88) 11/13/16 03:18 90 Room Air 11/13/16 03:09 73 11/12/16 23:58 71 11/12/16 23:05 97.9 76 16 125/71 (89) 96 121/61 (81) 11/12/16 23:05 96 Room Air 11/12/16 19:32 84 11/12/16 19:20 94 Room Air 11/12/16 19:20 98.7 68 18 111/63 (79) 94 129/66 (87) 11/12/16 18:04 88 11/12/16 15:00 73 11/12/16 15:00 97.9 75 16 115/67 (83) 99 138/66 (90) 11/12/16 15:00 99 Nasal Cannula 3.00 11/12/16 12:00 80 11/12/16 12:00 99 Nasal Cannula 4.00 11/12/16 12:00 97.5 80 16 128/73 (91) 99 148/66 (93) 11/12/16 11:56 98 Nasal Cannula 4.00 Discharge Condition: Good Discharge Disposition: Discharge Home Discharge Instructions: Leave incision open to air Do not apply any creams or ointments to incision site as it may loosen the surgical glue May shower tomorrow AM NO tub baths or swimming until incision is FULLY healed Call to report any new onset redness,drainage or swelling Follow up with your PCP in 2W Follow up in our out patient clinic in 4W with a surveillance carotid duplex Ashley MATHEW [facility] [phone] Any questions or concerns: Call [facility] at [facility] [phone] Ashley Liz Nov 13, 2016 09:09
[2016-11-14] MEDS ORDERED: LEVOTHYROXINE SODIUM 125 MCG TAB PO SCH (06:00)
[2016-11-22] MEDS ORDERED: CYCL5TAB PO (14:26)
[2016-11-22] MEDS ORDERED: ATOR1TAB18 PO (14:27)
[2016-11-22] MEDS ORDERED: LEVO.125 PO (14:27)
== END 2016-11-13 10:26 | disposition home or self-care (01) | DRG 39 ==
LOC: HSDI 05:54 → HCVR 10:25
PROVIDERS: ADMIT Surgery; ATTEND Surgery
PROC: 03UL0KZ Supplement Left Internal Carotid Artery with Nonautologous Tissue Substitute, Open Approach (ICD-10-PCS; 2016-11-12)
PROC: 03CL0Z6 (ICD-10-PCS; principal; 2016-11-12 07:46)
DX: I65.22 Occlusion and stenosis of left carotid artery (principal); I10 Essential (primary) hypertension; E78.5 Hyperlipidemia, unspecified; E03.9 Hypothyroidism, unspecified; F17.210 Nicotine dependence, cigarettes, uncomplicated; D72.829 Elevated white blood cell count, unspecified
CPT/HCPCS: 71010; 80048; 81001; 84100; 84439; 84443; 85025; 85027; 85610; 86850; 86900; 86901; C1768; J0131; J0690; J1100; J1644; J1650; J2250; J2370; J2405; J2710; J2720; J3010; J3480; J7120